=== PATIENT | female | born 1960 | race Caucasian/White ===

== ENCOUNTER 2016-09-28 08:49 | Emergency (ER) | payer OTHER, BC ==
[~2016-09-28] VITALS: Ht 167.6 cm; Wt 60.0 kg
[2016-09-28 08:50] VITALS: BP 142/97; PULSE 95; RESP 16; TEMP 97.8; O2SAT 99
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
[2016-09-28] MEDS ORDERED: CYCLOBENZAPRINE HCL 10 MG TAB PO ONE (10:15)
[2016-09-28] MEDS ORDERED: IBUPROFEN 800 MG TAB PO ONE (10:15)
[2016-09-28] MEDS ORDERED: IBUP800T23 PO (10:40)
[2016-09-28] MEDS ORDERED: CYCL1TAB29 PO (10:40)
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
[2016-09-28 11:31] VITALS: BP 140/74
== END 2016-09-28 11:32 | disposition home or self-care (01) ==
LOC: NEPB 08:49
DX: S16.1XXA Strain of muscle, fascia and tendon at neck level, initial encounter (principal); M79.1 Myalgia; R51 Headache; M54.5 Low back pain; V43.52XA Car driver injured in collision with other type car in traffic accident, initial encounter; Y92.410 Unspecified street and highway as the place of occurrence of the external cause
CPT/HCPCS: 72040; 72100; 99284